=== PATIENT | male | born 1930 | race Caucasian/White ===

== ENCOUNTER 2019-08-29 16:24 | Inpatient (IN) ==
[2019-08-29] MEDS ORDERED: Perflutren Lipid Microsphere 1.3 ML in 0.9 % Sodium Chloride 8.7 ML IVP ONE (19:59)
[2019-08-29 21:24] LABS: Hematocrit 33.6 % (37.5-50.1); Hemoglobin 10.9 g/dL (12.9-16.9); Mean Corpuscular HGB Conc 32.4 g/dL (31.6-35.5); Mean Corpuscular Hemoglobin 31.4 pg (28.0-33.3); Mean Corpuscular Volume 96.8 fL (83.0-100.0); Red Blood Count 3.47 M/mcL (4.19-5.50); Red Cell Distribution Width 12.6 % (11.5-14.5); White Blood Count 16.1 K/mcL (4.3-11.1)
[2019-08-29 21:25] LABS: Basophils # 0.1 K/mcL (0.0-0.2); Basophils % 0.4 %; Eosinophils # 0.4 K/mcL (0.0-0.6); Eosinophils % 2.2 %; Immature Granulocytes % 0.5 % (0-4); Lymphocytes # 1.2 K/mcL (0.6-4.6); Lymphocytes % 7.5 %; Mean Platelet Volume 10.7 fL (9.4-12.4); Monocytes # 1.4 K/mcL (0.0-1.3); Monocytes % 8.6 %; Platelet Count 285 K/mcL (140-400); Segmented Neutrophils % 80.8 %
[2019-08-29 21:32] LABS: INR 1.3; Prothrombin Time 14.5 Seconds (9.4-12.1)
[2019-08-29 21:34] LABS: Activated Partial Thrombo Time 35.5 Seconds (26.0-36.0)
[2019-08-29 21:45] LABS: Albumin/Globulin Ratio 1.1 (1.1-2.2); Bilirubin,Direct 0.1 mg/dL (0.0-0.2); Bilirubin,Indirect 0.5 mg/dL (0.0-1.2); Bilirubin,Total 0.6 mg/dL (0.3-1.0); Chol/HDL Ratio 5.2 (0-4.9); Globulin 3.6 g/dL (2.4-3.5); Total Protein 7.6 g/dL (6.4-8.9)
[2019-08-29 21:46] LABS: Albumin 3.9 g/dL (3.5-5.7); Albumin/Globulin Ratio 1.1 (1.1-2.2); Bilirubin,Total 0.6 mg/dL (0.3-1.0); Calcium 9.4 mg/dL (8.6-10.3); Globulin 3.6 g/dL (2.4-3.5); Magnesium 2.3 mg/dL (1.6-2.6); Potassium 4.8 mEq/L (3.5-5.1); Total Protein 7.5 g/dL (6.4-8.9)
[2019-08-29] MEDS: Ipratropium/Albuterol Neb 3 ML IH SCH ×2 (22:00→23:29)
[2019-08-29] MEDS ORDERED: *HR* Promethazine 25 MG/ML VIAL IVP PRN (22:22)
[2019-08-29] MEDS ORDERED: Ondansetron 4 MG/2 ML VIAL IVP PRN (22:22)
[2019-08-29] MEDS ORDERED: Naloxone 0.4 MG/ML INJ IVP PRN (22:22)
[2019-08-29] MEDS ORDERED: Acetaminophen 325 MG TABLET PO PRN (22:32)
[2019-08-29] MEDS ORDERED: *HR* HYDROmorphone (PF) 1 MG/ML SYRINGE IVP PRN (22:33)
[2019-08-29] MEDS ORDERED: hydrALAZINE 10 MG TABLET PO PRN (22:35)
[2019-08-29] MEDS: 0.9 % Sodium Chloride 1,000 ML IVC SCH (23:24)
[2019-08-30 00:11] LABS: Adenovirus Not Detected (Not Detect); Bordetella Pertussis Not Detected (Not Detect); Chlamydophila pneumoniae Not Detected (Not Detect); Coronavirus 229E Not Detected (Not Detect); Coronavirus HKU1 Not Detected (Not Detect); Coronavirus NL63 Not Detected (Not Detect); Coronavirus OC43 Not Detected (Not Detect); Human Metapneumovirus Not Detected (Not Detect); Human Rhinovirus/Enterovirus Not Detected (Not Detect); Influenza A Subtype 2009 H1 Not Detected (Not Detect); Influenza A Untypeable Not Detected (Not Detect); Influenza B Not Detected (Not Detect); Mycoplasma pneumoniae Not Detected (Not Detect); Parainfluenza Virus 1 Not Detected (Not Detect); Parainfluenza Virus 2 Not Detected (Not Detect); Parainfluenza Virus 3 Not Detected (Not Detect); Parainfluenza Virus 4 Not Detected (Not Detect); Respiratory Syncytial Virus Not Detected (Not Detect)
[2019-08-30] MEDS ORDERED: Pantoprazole 40 MG VIAL IVP SCH ×2 (00:45→18:00)
[2019-08-30 00:49] LABS: Clarity,Urine Slightly Cloudy (Clear); Color,Urine Yellow (Yellow); Glucose,Urine (UA) Normal (Normal)
[2019-08-30 00:50] LABS: Bacteria,Urine Moderate per hpf (None-Few); Bilirubin,Urine Negative (Negative); Blood,Urine Large (Negative); Ketones,Urine Negative (Negative); Leukocyte Esterase,Urine Small (Negative); Nitrite,Urine Positive (Negative); Protein,Urine 100 mg/dL (Neg-Trace); RBC,Urine 15-30 per hpf (0-3); Specific Gravity,Urine 1.018 (1.010-1.025); Squamous Epithelial Cell,Urine Moderate per lpf (None-Few); Urobilinogen,Urine Normal (Normal); WBC,Urine 15-30 per hpf (0-3)
[2019-08-30] MEDS: Ipratropium/Albuterol Neb 3 ML IH SCH ×6 (03:26→23:48)
[2019-08-30 05:40] LABS: Hematocrit 32.9 % (37.5-50.1); Hemoglobin 10.5 g/dL (12.9-16.9); Mean Corpuscular HGB Conc 31.9 g/dL (31.6-35.5); Mean Corpuscular Hemoglobin 32.2 pg (28.0-33.3); Mean Corpuscular Volume 100.9 fL (83.0-100.0); Mean Platelet Volume 10.8 fL (9.4-12.4); Platelet Count 281 K/mcL (140-400); Red Blood Count 3.26 M/mcL (4.19-5.50); Red Cell Distribution Width 12.8 % (11.5-14.5); White Blood Count 14.3 K/mcL (4.3-11.1)
[2019-08-30 06:02] LABS: Calcium 9.3 mg/dL (8.6-10.3); Potassium 4.7 mEq/L (3.5-5.1)
[2019-08-30] MEDS ORDERED: cefTRIAXone 1,000 MG in 0.9 % Sodium Chloride Mini Bag 100 ML IVPB SCH (10:36)
[2019-08-30] MEDS ORDERED: Lidocaine -MPF 4% 5 ML AMPUL ONE (15:29)
[2019-08-30] MEDS ORDERED: Lidocaine -MPF 2% 2 ML VIAL ONE ×2 (15:33)
[2019-08-30] MEDS ORDERED: *HR* Succinylcholine 200 MG/10 ML VIAL IVP ONE (15:33)
[2019-08-30] MEDS ORDERED: *HR* Rocuronium Bromide 50 MG/5 ML VIAL ONE (15:33)
[2019-08-30] MEDS ORDERED: *HR* Propofol 200 MG/20 ML VIAL IVP ONE (15:34)
[2019-08-30] MEDS ORDERED: *HR* FentaNYL (PF) 100 MCG/2 ML VIAL ONE (15:38)
[2019-08-30] MEDS ORDERED: Clindamycin 900 MG/50 ML 900 MG/50 ML IV.SOLN IVPB ONE (16:27)
[2019-08-30] MEDS ORDERED: Dexamethasone 4 MG/ML VIAL ONE (17:12)
[2019-08-30] MEDS ORDERED: Ondansetron 4 MG/2 ML VIAL ONE (17:12)
[2019-08-30] MEDS ORDERED: *HR* PHENYLEPHRINE 1,000 MCG/10 ML SYRINGE IVP ONE (17:15)
[2019-08-30] MEDS ORDERED: 0.9 % Sodium Chloride 500 ML ONE (18:34)
[2019-08-30] MEDS ORDERED: 0.9 % Sodium Chloride 1,000 ML IVC SCH (18:54)
[2019-08-30] MEDS ORDERED: Ondansetron 4 MG/2 ML VIAL IVP PRN (18:54)
[2019-08-30] MEDS ORDERED: hydrALAZINE 10 MG TABLET PO PRN (18:54)
[2019-08-30] MEDS ORDERED: Perflutren Lipid Microsphere 1.3 ML in 0.9 % Sodium Chloride 8.7 ML IVP ONE (18:54)
[2019-08-30] MEDS ORDERED: Naloxone 0.4 MG/ML INJ IVP PRN (18:54)
[2019-08-30] MEDS ORDERED: Acetaminophen 325 MG TABLET PO PRN (18:54)
[2019-08-30] MEDS ORDERED: Ringers Solution, Lactated 1,000 ML IVC SCH (18:54)
[2019-08-30] MEDS ORDERED: *HR* Promethazine 25 MG/ML VIAL IVP PRN (18:54)
[2019-08-30] MEDS ORDERED: Sennosides/Docusate Sodium TABLET PO SCH (21:00)
[2019-08-30] MEDS: Sennosides/Docusate Sodium TABLET PO SCH (21:29)
[2019-08-30] MEDS: Clindamycin 900 MG/50 ML 900 MG/50 ML IV.SOLN IVPB SCH (23:44)
[2019-08-31] MEDS: Ipratropium/Albuterol Neb 3 ML IH SCH ×3 (03:19→11:31)
[2019-08-31 03:46] LABS: Hematocrit 30.3 % (37.5-50.1); Hemoglobin 9.7 g/dL (12.9-16.9); Mean Corpuscular Hemoglobin 31.8 pg (28.0-33.3); Mean Corpuscular Volume 99.3 fL (83.0-100.0); Mean Platelet Volume 10.8 fL (9.4-12.4); Platelet Count 289 K/mcL (140-400); Red Blood Count 3.05 M/mcL (4.19-5.50); Red Cell Distribution Width 12.5 % (11.5-14.5); White Blood Count 14.4 K/mcL (4.3-11.1)
[2019-08-31 04:05] LABS: Calcium 8.8 mg/dL (8.6-10.3); Potassium 4.4 mEq/L (3.5-5.1)
[2019-08-31] MEDS ORDERED: 0.9 % Sodium Chloride 1,000 ML IVC SCH (07:38)
[2019-08-31] MEDS: Ringers Solution, Lactated 1,000 ML IVC SCH ×2 (08:14→19:09)
[2019-08-31] MEDS: Clindamycin 900 MG/50 ML 900 MG/50 ML IV.SOLN IVPB SCH (08:15)
[2019-08-31] MEDS: Sennosides/Docusate Sodium TABLET PO SCH ×2 (08:18→19:50)
[2019-08-31] MEDS: *HR* Enoxaparin 30 MG/0.3 ML SYRINGE SQ SCH (08:18)
[2019-08-31] MEDS ORDERED: cefTRIAXone 1,000 MG in Water for inj. (sterile) 10 ML IVP SCH (09:00)
[2019-08-31] MEDS: 0.9 % Sodium Chloride 1,000 ML IVC SCH (09:07)
[2019-08-31] MEDS: Levalbuterol Neb 0.63 MG/3 ML IH SCH ×2 (15:37→22:43)
[2019-09-01 04:08] LABS: Basophils % 0.1 %; Hematocrit 28.8 % (37.5-50.1); Hemoglobin 9.2 g/dL (12.9-16.9); Immature Granulocytes % 0.8 % (0-4); Lymphocytes # 0.7 K/mcL (0.6-4.6); Lymphocytes % 4.4 %; Mean Corpuscular HGB Conc 31.9 g/dL (31.6-35.5); Mean Corpuscular Hemoglobin 31.9 pg (28.0-33.3); Mean Platelet Volume 10.8 fL (9.4-12.4); Monocytes # 1.2 K/mcL (0.0-1.3); Monocytes % 7.4 %; Neutrophils # 14.5 K/mcL (1.6-8.9); Platelet Count 320 K/mcL (140-400); Red Blood Count 2.88 M/mcL (4.19-5.50); Red Cell Distribution Width 12.7 % (11.5-14.5); Segmented Neutrophils % 87.3 %; White Blood Count 16.6 K/mcL (4.3-11.1)
[2019-09-01 04:31] LABS: Potassium 4.3 mEq/L (3.5-5.1)
[2019-09-01] MEDS: Levalbuterol Neb 0.63 MG/3 ML IH SCH ×4 (04:40→21:47)
[2019-09-01] MEDS ORDERED: Ringers Solution, Lactated 1,000 ML IVC SCH (07:30)
[2019-09-01 08:30] LABS: Sodium, Urine 97.8 mEq/L
[2019-09-01] MEDS ORDERED: cefTRIAXone 1,000 MG in 0.9 % Sodium Chloride Mini Bag 100 ML IVPB SCH (09:00)
[2019-09-01] MEDS ORDERED: Cefepime HCl 2,000 MG in 0.9 % Sodium Chloride Mini Bag 100 ML IVPB SCH (09:00)
[2019-09-01] MEDS: Sennosides/Docusate Sodium TABLET PO SCH ×2 (09:02→20:39)
[2019-09-01] MEDS: *HR* Enoxaparin 30 MG/0.3 ML SYRINGE SQ SCH (09:02)
[2019-09-01] MEDS ORDERED: Piperacillin/Tazobactam 3.375 GM in 0.9 % Sodium Chloride Mini Bag 100 ML IVPB SCH ×2 (11:30→18:00)
[2019-09-01] MEDS: Piperacillin/Tazobactam 3.375 GM in 0.9 % Sodium Chloride Mini Bag 100 ML IVPB SCH ×2 (12:30→21:31)
[2019-09-01] MEDS: amLODIPine 5 MG TABLET PO SCH (13:11)
[2019-09-01] MEDS: hydrALAZINE 10 MG TABLET PO PRN (18:10)
[2019-09-02 04:09] LABS: Hematocrit 30.7 % (37.5-50.1); Hemoglobin 9.7 g/dL (12.9-16.9); Mean Corpuscular HGB Conc 31.6 g/dL (31.6-35.5); Mean Corpuscular Hemoglobin 31.4 pg (28.0-33.3); Mean Corpuscular Volume 99.4 fL (83.0-100.0); Platelet Count 317 K/mcL (140-400); Red Blood Count 3.09 M/mcL (4.19-5.50); Red Cell Distribution Width 12.5 % (11.5-14.5); White Blood Count 14.6 K/mcL (4.3-11.1)
[2019-09-02 04:30] LABS: Potassium 4.1 mEq/L (3.5-5.1)
[2019-09-02] MEDS: Levalbuterol Neb 0.63 MG/3 ML IH SCH ×4 (04:30→22:23)
[2019-09-02] MEDS: hydrALAZINE 10 MG TABLET PO PRN ×3 (05:31→17:46)
[2019-09-02] MEDS: Piperacillin/Tazobactam 3.375 GM in 0.9 % Sodium Chloride Mini Bag 100 ML IVPB SCH ×2 (05:31→17:40)
[2019-09-02] MEDS ORDERED: amLODIPine 5 MG TABLET PO SCH (09:00)
[2019-09-02] MEDS: amLODIPine 5 MG TABLET PO SCH (09:52)
[2019-09-02] MEDS: *HR* Enoxaparin 30 MG/0.3 ML SYRINGE SQ SCH (09:53)
[2019-09-02] MEDS: Sennosides/Docusate Sodium TABLET PO SCH ×2 (09:53→22:03)
[2019-09-02] MEDS ORDERED: *HR* LORazepam 0.5 MG TABLET PO PRN (11:35)
[2019-09-03] MEDS: Levalbuterol Neb 0.63 MG/3 ML IH SCH ×2 (03:58→10:10)
[2019-09-03 05:07] LABS: Hematocrit 31.7 % (37.5-50.1); Hemoglobin 10.2 g/dL (12.9-16.9); Mean Corpuscular HGB Conc 32.2 g/dL (31.6-35.5); Mean Corpuscular Hemoglobin 31.4 pg (28.0-33.3); Mean Corpuscular Volume 97.5 fL (83.0-100.0); Mean Platelet Volume 11.1 fL (9.4-12.4); Platelet Count 354 K/mcL (140-400); Red Blood Count 3.25 M/mcL (4.19-5.50); Red Cell Distribution Width 12.5 % (11.5-14.5); White Blood Count 14.3 K/mcL (4.3-11.1)
[2019-09-03] MEDS: Piperacillin/Tazobactam 3.375 GM in 0.9 % Sodium Chloride Mini Bag 100 ML IVPB SCH (06:41)
[2019-09-03] MEDS: hydrALAZINE 10 MG TABLET PO PRN (06:41)
[2019-09-03] MEDS: Sennosides/Docusate Sodium TABLET PO SCH (08:39)
[2019-09-03] MEDS: *HR* Enoxaparin 30 MG/0.3 ML SYRINGE SQ SCH (08:40)
[2019-09-03 08:42] VITALS: BP 168/87
[2019-09-03] MEDS ORDERED: amLODIPine 5 MG TABLET PO SCH (09:00)
== END 2019-09-03 10:37 | DRG 853 ==
LOC: 2ANU → SUATTDRO 22:22
PROVIDERS: ADMIT Pharmacist; ATTEND Internal Medicine

== ENCOUNTER 2019-09-25 10:04 | Inpatient (IN) ==
[~2019-09-25 10:04] MED LIST: Aminoglycoside Consult 1 EACH MC ONE
[2019-09-25] MEDS ORDERED: 0.9 % Sodium Chloride 500 ML IVC ONE (12:09)
[2019-09-25 12:13] LABS: ABG Base Excess -7 mEq/L (-2 to 3); ABG HCO3 17 mEq/L (21-27); ABG Oxygen Saturation 99 % (95-98); ABG PCO2 27 mmHg (35-45); ABG PH 7.41 pH Units (7.32-7.45); ABG PO2 132 mmHg (85-104); ABG TCO2 18 mEq/L (20-26); Blood Gas Modality AVAPS; Blood Gas VT 450 cc
[2019-09-25] MEDS ORDERED: Albumin 25% 25gram/100mL 25 GM/100 ML IV.SOLN IVPB ONE (12:40)
[2019-09-25 12:45] LABS: Hematocrit 27.1 % (37.5-50.1); Hemoglobin 8.6 g/dL (12.9-16.9); Mean Corpuscular HGB Conc 31.7 g/dL (31.6-35.5); Mean Corpuscular Volume 97.8 fL (83.0-100.0); Mean Platelet Volume 10.2 fL (9.4-12.4); Platelet Count 342 K/mcL (140-400); Red Blood Count 2.77 M/mcL (4.19-5.50)
[2019-09-25 12:50] LABS: White Blood Count 34.9 K/mcL (4.3-11.1)
[2019-09-25] MEDS ORDERED: Vancomycin 1 EACH in 0.9 % Sodium Chloride 250 ML IVPB PRN (13:00)
[2019-09-25] MEDS ORDERED: levoFLOXacin 750 MG/150 ML 750 MG/150 ML BAG IVPB SCH (13:00)
[2019-09-25 13:03] LABS: Vancomycin,Random 2 mcg/mL
[2019-09-25 13:04] LABS: Troponin I < 0.03 ng/mL (< 0.04)
[2019-09-25 13:05] LABS: Lymphocytes # 1.4 K/mcL (0.6-4.6); Monocytes # 1.4 K/mcL (0.0-1.3); Neutrophils # 32.1 K/mcL (1.6-8.9)
[2019-09-25 13:06] LABS: Platelet Estimate Normal (Normal)
[2019-09-25] MEDS ORDERED: Hydrocortisone Sodium Succ 100 MG/2 ML VIAL IVP STA (13:19)
[2019-09-25] MEDS ORDERED: 0.9 % Sodium Chloride 1,000 ML ONE (13:25)
[2019-09-25] MEDS: Ipratropium/Albuterol Neb 3 ML IH SCH ×3 (15:24→22:12)
[2019-09-25] MEDS ORDERED: Acetaminophen IV 1,000 MG/100 ML INFUS..BTL IVPB ONE (17:46)
[2019-09-25] MEDS ORDERED: Ondansetron 4 MG/2 ML VIAL IVP PRN (18:07)
[2019-09-25 19:09] LABS: BUN/Creatinine Ratio 15 (6-26); Blood Urea Nitrogen 48 mg/dL (8-23); Calcium 7.7 mg/dL (8.6-10.3); Carbon Dioxide 17 mEq/L (23-29); Chloride 109 mEq/L (98-107); Glucose 74 mg/dL (70-105); Osmolality,Calculated 293 (280-300); Potassium 4.6 mEq/L (3.5-5.1); Sodium 136 mEq/L (136-145); eGFR For African Americans 23 (> 60); eGFR For Non-African Americans 19 (> 60)
[2019-09-25] MEDS ORDERED: Acetaminophen IV 1,000 MG/100 ML INFUS..BTL IVPB PRN (23:00)
[2019-09-25] MEDS: Hydrocortisone Sodium Succ 100 MG/2 ML VIAL IVP SCH (23:06)
[2019-09-25] MEDS: Piperacillin/Tazobactam 3.375 GM in 0.9 % Sodium Chloride Mini Bag 100 ML IVPB SCH (23:21)
[2019-09-25] MEDS: Pantoprazole 40 MG VIAL IVP SCH (23:21)
[2019-09-26] MEDS: Hydrocortisone Sodium Succ 100 MG/2 ML VIAL IVP SCH ×3 (00:18→09:05)
[2019-09-26] MEDS: 0.9 % Sodium Chloride 1,000 ML IVC SCH ×2 (01:37→11:56)
[2019-09-26] MEDS: Piperacillin/Tazobactam 3.375 GM in 0.9 % Sodium Chloride Mini Bag 100 ML IVPB SCH ×2 (08:52→09:04)
[2019-09-26] MEDS: Pantoprazole 40 MG VIAL IVP SCH ×2 (08:52→09:05)
[2019-09-26] MEDS ORDERED: Naloxone 0.4 MG/ML INJ IVP PRN ×2 (09:14→10:03)
[2019-09-26 09:23] LABS: Acinetobacter baumannii by PCR Not Detected (Not Detect); Candida albicans by PCR Not Detected (Not Detect); Candida glabrata by PCR Not Detected (Not Detect); Candida krusei by PCR Not Detected (Not Detect); Candida parapsilosis by PCR Not Detected (Not Detect); Candida tropicalis by PCR Not Detected (Not Detect); Enterobacter cloacae Cmplx PCR Not Detected (Not Detect); Enterococcus by PCR Not Detected (Not Detect); Escherichia coli by PCR Not Detected (Not Detect); Klebsiella oxytoca by PCR Not Detected (Not Detect); Klebsiella pneumoniae by PCR DETECTED (Not Detect); Proteus by PCR Not Detected (Not Detect); Pseudomonas aeruginosa by PCR Not Detected (Not Detect); Serratia marcescens by PCR Not Detected (Not Detect); Staphylococcus aureus by PCR Not Detected (Not Detect); Staphylococcus by PCR Not Detected (Not Detect); Streptococcus agalactiae(B)PCR Not Detected (Not Detect); Streptococcus by PCR Not Detected (Not Detect); Streptococcus pneumoniae PCR Not Detected (Not Detect); Streptococcus pyogenes (A) PCR Not Detected (Not Detect); blaKPC Carbapenem-Resist Gene Not Detected (Not Detect)
[2019-09-26] MEDS ORDERED: *HR* HYDROmorphone (PF) 1 MG/ML SYRINGE IVP PRN (09:24)
[2019-09-26] MEDS ORDERED: *HR* FentaNYL (PF) 100 MCG/2 ML VIAL IVP ONE ×2 (09:40→10:50)
[2019-09-26] MEDS ORDERED: *HR* FentaNYL (PF) 100 MCG/2 ML VIAL IVP PRN ×2 (10:26→10:51)
[2019-09-26] MEDS ORDERED: Haloperidol Lactate 5 MG/ML VIAL IVP PRN ×2 (10:30→11:30)
[2019-09-26] MEDS ORDERED: *HR* FentaNYL (PF) 100 MCG/2 ML VIAL ONE ×2 (10:57→12:55)
[2019-09-26] MEDS: *HR* LORazepam 2 MG/ML VIAL IVP PRN ×3 (11:03→16:49)
[2019-09-26] MEDS ORDERED: Atropine Sulfate 1% 40 DROP/2 ML BOTTLE SL PRN (11:34)
[2019-09-26] MEDS ORDERED: *HR* LORazepam 2 MG/ML VIAL ONE (13:07)
[2019-09-26] MEDS: *HR* LORazepam Oral Conc 2 MG/ML SL SCH ×2 (15:25→20:24)
[2019-09-27] MEDS: *HR* LORazepam Oral Conc 2 MG/ML SL SCH ×4 (02:21→20:05)
[2019-09-27] MEDS: Ipratropium/Albuterol Neb 3 ML IH PRN ×2 (02:36→22:26)
[2019-09-27] MEDS ORDERED: Ondansetron 4 MG/2 ML VIAL IVP PRN (20:11)
[2019-09-28] MEDS: *HR* LORazepam Oral Conc 2 MG/ML SL SCH ×2 (01:47→09:12)
[2019-09-28] MEDS: Ipratropium/Albuterol Neb 3 ML IH PRN ×2 (02:45→10:48)
[2019-09-28] MEDS ORDERED: Bisacodyl 10 MG RECTAL SUPPOSITORY RC PRN (10:08)
[2019-09-28 16:40] VITALS: BP 130/77
== END 2019-09-28 12:17 | disposition hospice, inpatient (51) | DRG 871 ==
LOC: 2NNU 11:23 → SUATTDRO 11:23 → 2ANU 09-26 13:16
PROVIDERS: ADMIT Student in an Organized Health Care Education/Training Program; ATTEND Internal Medicine

== ENCOUNTER 2019-09-28 09:47 | Inpatient (IN) ==
[2019-09-28] MEDS ORDERED: Bisacodyl 10 MG RECTAL SUPPOSITORY RC PRN (10:13)
[2019-09-28] MEDS ORDERED: Ipratropium/Albuterol Neb 3 ML IH PRN (10:17)
[2019-09-28] MEDS ORDERED: Haloperidol Oral Conc 10 MG/5 ML UDC PO PRN (10:18)
[2019-09-28] MEDS ORDERED: Atropine Sulfate 1% 40 DROP/2 ML BOTTLE SL PRN (10:18)
[2019-09-28] MEDS ORDERED: *HR* LORazepam Oral Conc 2 MG/ML SL PRN (10:19)
[2019-09-28] MEDS ORDERED: *HR* FentaNYL (PF) 100 MCG/2 ML VIAL IVP PRN (10:29)
[2019-09-28] MEDS: *HR* LORazepam Oral Conc 2 MG/ML SL SCH ×2 (14:53→18:34)
[2019-09-29] MEDS: *HR* LORazepam Oral Conc 2 MG/ML SL SCH ×5 (00:09→23:51)
[2019-09-29 11:39] VITALS: BP 126/75
[2019-09-30] MEDS: *HR* LORazepam Oral Conc 2 MG/ML SL SCH ×2 (08:41→12:30)
== END 2019-09-30 12:21 | disposition hospice, home (50) | DRG 951 ==
LOC: 2ANU 12:20
PROVIDERS: ADMIT Internal Medicine Hospice and Palliative Medicine; ATTEND Internal Medicine Hospice and Palliative Medicine